=== PATIENT | female | born 1950 | race Caucasian/White ===

== ENCOUNTER 2024-05-30 00:47 | Outpatient (CLI) | payer MEDICARE, OTHER, SELFPAY ==
--- NOTE | 2024-05-30 07:15 | DI.US_ITS ---
Exam(s) US NEEDLE LOCAL OTHER WO RAD EXAM: US NEEDLE LOCAL OTHER WO RAD CLINICAL HISTORY: 1 nodule w criteria for biopsy (mixed cystic-solid),e04.2,us guided bx,mult. COMPARISON: No exams were available for comparison TECHNIQUE: Ultrasound was provided for Dr. James for guidance with performing an ultrasound-guided thyroid biopsy. FINDINGS: Please see procedure note for details. DATA REPOSITORY:
--- NOTE | 2024-05-30 12:15 | PAPNONF_PTH ---
PATIENT: Karon Estrada LOC: [facility] Val[facility]uela#:[id number] AGE/SX: 73/F ROOM: RE05/30/[address]: Rio James MD : 1950 BED: DIS: 05/30/2024 SPEC #: [id number] RECD: 05/30/24 12:55 STATUS: JESUS REQ #: [id number] PAUL: 05/30/24 12:[address]: Rio James DEPT: [facility] Cytology RECD BY: Barbra Lamb ENTERED: 05/30/24 12:56 SP TYPE: KAIDEN SARAH DR: Heidi Stephens Tissues: 1 - BODY FLUID CYTO-FINE NEEDLE ASPIRATE-[facility] Procedures: BODY FLUID CYTO-FINE NEEDLE ASPIRATE-[facility] Comments: [id number] (PATH FNA CONSULT) (REFRIGERATED)
--- NOTE | 2024-05-30 13:19 | OPPNE_ITS ---
Date of service: 05/30/24 Time of Service: 13:19 Procedure Note Date of procedure: 05/30/24 Procedure: Ultrasound-guided aspiration, right thyroid cyst Procedure Diagnosis: Right thyroid cyst, 4.3 cm diameter max Procedure Indications: Patient has a right sided thyroid cyst which appears to have a fairly thin wall based on ultrasound. Options were explained to the patient regarding further management. We did discuss at length that this may not give us a cellular diagnosis, as the cystic contents will likely not have much in the way of cellularity. I recommended that we perform drainage of the cyst in hopes that this will decrease her feelings of fullness on the right side of her neck, and hopefully proved to be a colloid cyst. She elected to undergo this. Consent was obtained. The below was then performed. All questions were answered prior to the procedure. Procedure Description: The patient was positioned in supine position and prepped and draped in appropriate fashion. Ultrasound was used to localize the right sided 4.3 cm maximal dimension thin-walled thyroid cyst. 1% lidocaine with 1/100,000 epinephrine was injected over the lesion into the soft tissues and in the subcutaneous plane. A 18-gauge Angiocath was then carefully introduced into the cyst, under ultrasound guidance, and used to aspirate a large amount of brown non-malodorous thin liquid. This was handed to pathology who did look at it and felt there was significant amount of colloid. Once the cyst had been largely aspirated, there was no significant residual mass, so no further biopsies were done as given that it had a thin wall, I did not think we would get adequate cellularity. After ensuring adequate hemostasis, a sterile dressing was applied and the patient was allowed to sit, stand, and ambulate. Her vital signs remained stable. She will remove the bandage later on today and not replace it. She will avoid anything strenuous today. She will call with any bruising or bleeding or any concerns. She will also call if she does not hear from me within a week with regard to the outcome of the analysis of the materials. Further care will d epend upon whether this cyst recurs, and what the outcome of the analysis is. She had no further questions. She is comfortable with this plan.
== END 2024-05-30 01:07 ==
PROVIDERS: PCP Nurse Practitioner; Visit Provider Otolaryngology
DX: E04.2 Nontoxic multinodular goiter (principal)
CPT/HCPCS: 10005; 76942; 88104

== ENCOUNTER → 2025-01-24 02:12 | Outpatient (CLI) | payer MEDICARE, OTHER, SELFPAY ==
--- NOTE | 2025-01-24 07:45 | DI.US_ITS ---
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 TECHNIQUE: Ultrasound thyroid performed using standard protocol. COMPARISON: US US Thyroid, Soft Tissue Hd+Nck from 04/07/2024 US US NEEDLE LOCAL OTHER WO RAD from 05/30/2024 FINDINGS: This patient underwent ultrasound-guided FNA of a right breast nodule on 05/30/2024. RIGHT THYROID LOBE: Measures 2.2 cm AP x 2.3 cm wide x 4.8 cm craniocaudal There is a single dominant solid nodule in the right lobe which appears smaller than previous as the cystic component is been removed most probably during prior FNA. This nodule now measures 2.4 x 1.6 x 2.0 cm and is completely solid. Grading is as follows: Composition: Solid-2 points Echogenicity: Hypoechoic-2 points Shape: Wider than taller-0 points Margin: Smooth- 0 points Echogenic Foci: Contains peripheral calcification-2 points Total Points for this nodule: 6 ACR Ti-Rads Category: TR4 This TR 4 level nodule requires ultrasound-guided FNA as it measures greater than 1.5 cm. It is now completely solid so FNA yield should be higher than previous. ISTHMUS: Normal thickness. There are no nodules in the isthmus. LEFT THYROID LOBE: Measures 2.0 cm AP x 0.3 wide x 4.3 cm craniocaudal There are 3 focal findings in the left lobe. The most superior is a small colloid cyst of no significance. The 2nd is a solid nodule which measures 1.6 x 0.7 x 0.7 cm Grading of this nodule is as follows: Composition: Solid-2 points Echogenicity: Hypoechoic-2 points Shape: Wider than taller-0 points Margin: Smooth-0 points Echogenic Foci: Contains a peripheral macrocalc-1 points Total points for this nodule: 5 ACR Ti-Rads Category: 4 This TR 4 level nodule requires ultrasound-guided FNA as it measures greater than 1.5 cm. Second solid nodule in the left lobe is more inferiorly. This nodule measures approximately 2.2 x 1.7 x 1.7 cm. Grading of this nodule is as follows: Composition: Solid-2 points Echogenicity: Hypoechoic-2 points Shape: Wider than taller-0 points Margin: Ino-otrqrkp-3 points Echogenic Foci: Contains a peripheralmacrocalc-1 point Total Points for this nodule: 5 ACR Ti-Rads Category: 4 This TR 4 level nodule requires ultrasound-guided FNA as it measures greater than 1.5 cm. LYMPH NODES: There is no significant adenopathy. IMPRESSION: 1. There is a dominant solid nodule in the right thyroid lobe which was previously predominately cystic and apparently underwent ultrasound-guided FNA on 05/30/2024. It is presently completely solid and qualifies for ultrasound- guided FNA as a TR 4 level nodule measuring greater than 1.5 cm. I feel that the FNA yield will be higher upon repeat FNA as the nodules no completely solid. 2. There are also 2 solid TR 4 level nodules in the left lobe, both of which also qualify for ultrasound-guided FNA as the both measure greater than 1.5 cm. 3. There is no significant lymphadenopathy. DATA REPOSITORY:
== END ==
LOC: DI 02:13
PROVIDERS: PCP Nurse Practitioner; Visit Provider Otolaryngology
DX: E04.2 Nontoxic multinodular goiter (principal)
CPT/HCPCS: 76536